=== PATIENT | female | born 1960 | race Caucasian/White ===

== ENCOUNTER → 2016-06-08 | Outpatient (CLI) | payer OTHER ==
[~2016-06-08] MED LIST: ADVAIR 250/501 EA INH; ALBUTEROL0.09 MG/A2 IH; AMOXIL125 MG/5 M PO; ANAPROX DS550 MG PO; ATIVAN1 MG PO; AUGMENTIN 875 M1 TAB PO; CHOLESTROL PO; CIPRODEX 0.3%-7.5 ML OT; CLARITIN10 MG PO; DAYPRO600 M1 PO; DIFLUCAN150 MG PO; ESTROGEN; ESTROGEN PO; FLONASE0.05 MG/AC NS; KEFLEX500 MG PO; LYRICA75 MG PO; MEDROL DOSEPAK4 MG PO; MOBIC15 MG PO; MOTRIN50 MG; PHENERGAN25 MG RC; PRILOSEC40 MG PO; ROBAXIN750 MG PO; TOBRADEX 0.1%-0.5 ML OPH; VALIUM PO; VALIUM10 MG PO; VALIUM2 MG PO; VIBRAMYCIN100 MG PO; VICO75300 PO; VICODIN; VICODIN 5/500 505 MG PO; VICODIN 500 MG-1 TAB PO; VITAMIN; XANAX PO; XANAX XR1 MG PO; XANAX0.5 MG PO; ZOFRAN4 MG PO
[2016-06-08 15:58] LABS: BILIRUBIN NEGATIVE (NEGATIVE); BLOOD TRACE-INTACT (NEGATIVE); CLARITY CLOUDY (CLEAR); COLOR YELLOW (YELLOW); GLUCOSE NEGATIVE (NEGATIVE); KETONE NEGATIVE (NEGATIVE); LEUKO ESTERASE 3+ (NEGATIVE); NITRITE NEGATIVE (NEGATIVE); PH 5.5 (5.0-9.0); PROTEIN NEGATIVE (NEGATIVE); SPECIFIC GRAVITY <= 1.005 (1.005-1.030); UROBILINOGEN 0.2 E.U./dl (0.2-1.0)
[2016-06-08 15:59] LABS: BASO % 0.4 % (0.0-1.0); EOS # 0.2 10*3/uL (0.0-0.4); EOS % 2.1 % (1.0-4.0); HEMATOCRIT 40.4 % (37.0-47.0); HEMOGLOBIN 13.5 g/dl (12.0-16.0); LYMPH # 3.4 10*3/uL (1.3-4.4); LYMPH % 47.1 % (27.0-41.0); MEAN CELL VOLUME 94.8 fl (81.0-99.0); MEAN CORPUSCULAR HGB 31.7 pg (27.0-31.0); MEAN CORPUSCULAR HGB CONC 33.4 g/dl (33.0-37.0); MONO # 0.8 10*3/uL (0.1-1.0); NEUT # 2.8 10*3/uL (2.3-7.9); NEUT % 39.3 % (47.0-73.0); PLATELET COUNT AUTOMATED 303 10*3/uL (130-400); RED BLOOD COUNT 4.26 10*6/uL (4.10-5.10); RED CELL DISTRI WIDTH 13.3 % (0-14.5); WHITE BLOOD COUNT 7.2 10*3/uL (4.8-10.8)
[2016-06-08 16:05] LABS: BACTERIA 2+; URINE REFLEX COMMENT YES (NO); WBC TNTC wbc/hpf (0-5)
[2016-06-08 16:26] LABS: ALBUMIN 3.8 gm/dl (3.1-4.5); ALKALINE PHOSPHATASE 80 U/L (45-117); BILIRUBIN, TOTAL 0.2 mg/dl (0.2-1.0); BUN 19 mg/dl (7-24); CARBON DIOXIDE 27 mmol/L (21-32); CHLORIDE 102 mmol/L (98-107); EST GLOM FILT AFRICAN AMERICAN > 60 ml/min; GLUCOSE 96 mg/dL (65-99); POTASSIUM 4.3 mmol/L (3.5-5.1); SGOT/AST 40 IU/L (3-35); SGPT/ALT 56 U/L (12-78); SODIUM 137 mmol/L (136-145); TOTAL PROTEIN 8.2 gm/dL (6.4-8.2)
[2016-06-08 16:27] LABS: C-REACTIVE PROTEIN < 0.29 MG/DL (0-0.3)
== END | disposition home or self-care (01) ==
LOC: LAB 15:33
PROVIDERS: Family Medicine
DX: J44.9 Chronic obstructive pulmonary disease, unspecified (principal); R50.9 Fever, unspecified; R11.2 Nausea with vomiting, unspecified

== ENCOUNTER → 2017-02-08 | Outpatient (CLI) | payer OTHER ==
[2017-02-08 16:13] LABS: CHOLESTEROL 183 mg/dL (<200); CPK 65 U/L (26-192); HDL CHOLESTEROL 38 mg/dl (40-60); LDL CHOLESTEROL 100 mg/dL (9-159); TRIGLYCERIDES 225 mg/dl (<150); VLDL CHOLESTEROL 45 mg/dL (6-40)
== END | disposition home or self-care (01) ==
LOC: LAB 15:02
PROVIDERS: Family Medicine
DX: E78.00 Pure hypercholesterolemia, unspecified (principal)

== ENCOUNTER → 2017-05-10 | Outpatient (CLI) | payer OTHER | END | disposition home or self-care (01) | LOC: MAMMO 15:17 | DX: Z12.31 Encounter for screening mammogram for malignant neoplasm of breast (principal) ==

== ENCOUNTER 2017-09-20 16:00 | Emergency (ER) | payer OTHER ==
[~2017-09-20] VITALS: Ht 152.4 cm; Wt 47.6 kg
[2017-09-20 16:03] VITALS: BP 118/76
[2017-09-20] MEDS ORDERED: CEPHALEXIN500 M1 PO (16:21)
[2017-09-20] MEDS ORDERED: ANTIBIOTIC28.4 GM T (16:24)
== END 2017-09-20 16:33 | disposition home or self-care (01) ==
LOC: ED 16:00
DX: S71.102A Unspecified open wound, left thigh, initial encounter (principal); Z79.899 Other long term (current) drug therapy; Z88.8 Allergy status to other drugs, medicaments and biological substances; X58.XXXA Exposure to other specified factors, initial encounter; Y93.89 Activity, other specified; Y92.89 Other specified places as the place of occurrence of the external cause; Y99.8 Other external cause status

== ENCOUNTER 2018-02-10 10:51 | Emergency (ER) | payer OTHER ==
[~2018-02-10] VITALS: Ht 152.4 cm; Wt 46.7 kg
--- NOTE | ~2018-02-10 | EKG ---
[place], [place] ELECTROCARDIOGRAM REPORT NAME: ERIS KO UNIT #: [id number] ROOM: DOCTOR: ELSA DRAFT REPORT BIRTHDATE: [birth year] [facility] Test Date: 2018-02-10 Test Time: 13:52:05 Pat Name: ERIS KO Department: Room: Gender: F Electric Drill Operator: : 1960 Requested By: CHAYA DORSEY Order Number: [id number] Reading MD: Measurements Intervals [place] Rate: 50 P: 63 WA: 138 QRS: 14 QRSD: 84 T: 35 QT: 439 QTc: 401 Interpretive Statements Sinus rhythm RSR' in V1 or V2, probably normal variant No previous ECG available for comparison CM:EKGRPT:ELECTROCARDIOGRAM REPORT [id number] CHAYA ROSS DRAFT REPORT CHAYA DORSEY DO
--- NOTE | ~2018-02-10 | EKG ---
[place], [place] ELECTROCARDIOGRAM REPORT NAME: ERIS KO UNIT #: [id number] ROOM: DOCTOR: ELSA DRAFT REPORT BIRTHDATE: [birth year] [facility] Test Date: 2018-02-10 Test Time: 10:53:57 Pat Name: ERIS KO Department: Room: Gender: F Barista: : 1960 Requested By: CHAYA DORSEY Order Number: [id number] Reading MD: Measurements Intervals [place] Rate: 96 P: 67 RI: 117 QRS: 10 QRSD: 81 T: 58 QT: 345 QTc: 436 Interpretive Statements Sinus rhythm Borderline short RI interval No previous ECG available for comparison CM:EKGRPT:ELECTROCARDIOGRAM REPORT [id number] CHAYA ROSS DRAFT REPORT CHAYA DORSEY DO
[~2018-02-10 10:51] MED LIST changes: +ANTIBIOTIC28.4 GM T; +CEPHALEXIN500 M1 PO
[2018-02-10 11:05] LABS: BASO % 0.5 % (0.0-1.0); EOS # 0.1 10*3/uL (0.0-0.4); EOS % 2.3 % (1.0-4.0); HEMATOCRIT 42.1 % (37.0-47.0); HEMOGLOBIN 14.3 g/dl (12.0-16.0); LYMPH # 3.3 10*3/uL (1.3-4.4); LYMPH % 53.1 % (27.0-41.0); MEAN CORPUSCULAR HGB 32.3 pg (27.0-31.0); MEAN PLATELET VOLUME 9.9 fl (9.6-12.3); MONO # 0.4 10*3/uL (0.1-1.0); MONO % 6.2 % (3.0-9.0); NEUT # 2.3 10*3/uL (2.3-7.9); NEUT % 37.7 % (47.0-73.0); PLATELET COUNT AUTOMATED 189 10*3/uL (130-400); RED BLOOD COUNT 4.43 10*6/uL (4.10-5.10); RED CELL DISTRI WIDTH 12.7 % (0-14.5); WHITE BLOOD COUNT 6.1 10*3/uL (4.8-10.8)
[2018-02-10 11:19] LABS: ACT PARTIAL THROMBO TIME 23.5 SECONDS (20.8-31.5)
[2018-02-10 11:22] LABS: ALBUMIN 3.9 gm/dl (3.1-4.5); ALKALINE PHOSPHATASE 60 U/L (45-117); BUN 23 mg/dl (7-24); CHLORIDE 102 mmol/L (98-107); CREATININE 1.09 mg/dL (0.55-1.02); POTASSIUM 4.3 mmol/L (3.5-5.1); SGOT/AST 16 IU/L (3-35); SGPT/ALT 17 U/L (12-78); SODIUM 136 mmol/L (136-145); TOTAL PROTEIN 7.7 gm/dL (6.4-8.2); TROPONIN I < 0.015 ng/ml (<0.045)
[2018-02-10 11:23] LABS: LIPASE 142 U/L (73-393)
[2018-02-10 13:58] LABS: BILIRUBIN NEGATIVE (NEGATIVE); BLOOD NEGATIVE (NEGATIVE); CLARITY CLEAR (CLEAR); COLOR YELLOW (YELLOW); GLUCOSE NEGATIVE (NEGATIVE); KETONE NEGATIVE (NEGATIVE); LEUKO ESTERASE NEGATIVE (NEGATIVE); NITRITE NEGATIVE (NEGATIVE); PH 6.5 (5.0-9.0); SPECIFIC GRAVITY <= 1.005 (1.005-1.030); UROBILINOGEN 0.2 E.U./dl (0.2-1.0)
[2018-02-10 14:20] LABS: RBC 0-2 rbc/hpf (0-2); WBC 0-2 wbc/hpf (0-5)
[2018-02-10 14:29] VITALS: BP 105/58
[2018-02-10] MEDS ORDERED: FLONASE ALLERG9.9 ML NAS (14:59)
[2018-02-10] MEDS ORDERED: LEVAQUIN750 M1 PO (14:59)
== END 2018-02-10 15:02 | disposition home or self-care (01) ==
LOC: ED 10:51
PROVIDERS: Emergency Medicine
DX: J32.9 Chronic sinusitis, unspecified (principal); R07.9 Chest pain, unspecified; J44.9 Chronic obstructive pulmonary disease, unspecified; R10.31 Right lower quadrant pain; R10.32 Left lower quadrant pain; F17.200 Nicotine dependence, unspecified, uncomplicated; Z88.8 Allergy status to other drugs, medicaments and biological substances; Z79.2 Long term (current) use of antibiotics; Z79.899 Other long term (current) drug therapy; Z90.710 Acquired absence of both cervix and uterus; Z90.49 Acquired absence of other specified parts of digestive tract

== ENCOUNTER 2018-04-08 19:28 | Emergency (ER) | payer OTHER ==
[~2018-04-08 19:28] MED LIST changes: +FLONASE ALLERG9.9 ML NAS; +LEVAQUIN750 M1 PO
[2018-04-08 19:31] VITALS: BP 127/68
== END 2018-04-08 21:29 | disposition home or self-care (01) ==
LOC: ED 19:28
DX: T59.91XA Toxic effect of unspecified gases, fumes and vapors, accidental (unintentional), initial encounter (principal); R05 Cough; R07.9 Chest pain, unspecified; R07.0 Pain in throat; Z88.8 Allergy status to other drugs, medicaments and biological substances; Z79.899 Other long term (current) drug therapy; Y92.89 Other specified places as the place of occurrence of the external cause

== ENCOUNTER 2018-07-26 12:45 | Emergency (ER) | payer OTHER ==
[~2018-07-26] VITALS: Ht 162.5 cm; Wt 48.1 kg
[2018-07-26 12:46] VITALS: BP 113/67
[2018-07-26] MEDS ORDERED: VIBRAMYCIN100 MG PO (14:57)
[2018-07-26] MEDS ORDERED: MEDROL DOSEPAK4 MG PO (14:57)
== END 2018-07-26 15:04 | disposition home or self-care (01) ==
LOC: ED 12:45
DX: J40 Bronchitis, not specified as acute or chronic (principal); M54.6 Pain in thoracic spine; Z88.8 Allergy status to other drugs, medicaments and biological substances; Z79.899 Other long term (current) drug therapy; Z79.2 Long term (current) use of antibiotics

== ENCOUNTER 2019-04-07 17:43 | Emergency (ER) | payer OTHER ==
[~2019-04-07] VITALS: Ht 154.9 cm; Wt 51.3 kg
[2019-04-07 17:52] VITALS: BP 110/82
[2019-04-07 18:32] LABS: BASO % 0.3 % (0.0-1.0); EOS # 0.1 10*3/uL (0.0-0.4); EOS % 1.5 % (1.0-4.0); HEMATOCRIT 44.1 % (37.0-47.0); HEMOGLOBIN 14.5 g/dl (12.0-16.0); LYMPH # 2.2 10*3/uL (1.3-4.4); MEAN CELL VOLUME 96.1 fl (81.0-99.0); MEAN CORPUSCULAR HGB 31.6 pg (27.0-31.0); MEAN CORPUSCULAR HGB CONC 32.9 g/dl (33.0-37.0); MEAN PLATELET VOLUME 9.9 fl (9.6-12.3); MONO # 0.4 10*3/uL (0.1-1.0); NEUT # 3.8 10*3/uL (2.3-7.9); PLATELET COUNT AUTOMATED 237 10*3/uL (130-400); RED BLOOD COUNT 4.59 10*6/uL (4.10-5.10); WHITE BLOOD COUNT 6.5 10*3/uL (4.8-10.8)
[2019-04-07 18:50] LABS: ALBUMIN 4.1 gm/dl (3.1-4.5); ALKALINE PHOSPHATASE 72 U/L (45-117); BUN 13 mg/dl (7-24); CHLORIDE 105 mmol/L (98-107); CREATININE 1.16 mg/dL (0.55-1.02); POTASSIUM 4.7 mmol/L (3.5-5.1); SGOT/AST 14 IU/L (3-35); SGPT/ALT 16 U/L (12-78); SODIUM 140 mmol/L (136-145); TOTAL PROTEIN 8.2 gm/dL (6.4-8.2)
[2019-04-07 18:53] LABS: TROPONIN I < 0.015 ng/ml (<0.045)
[2019-04-07] MEDS ORDERED: KEFLEX500 M1 PO (21:38)
[2019-04-07] MEDS ORDERED: PREDNISONE20 M1 PO (21:38)
== END 2019-04-07 21:02 | disposition home or self-care (01) ==
LOC: ED 17:43
PROVIDERS: Emergency Medicine
DX: J44.1 Chronic obstructive pulmonary disease with (acute) exacerbation (principal); F41.0 Panic disorder [episodic paroxysmal anxiety]; K21.9 Gastro-esophageal reflux disease without esophagitis; F32.9 Major depressive disorder, single episode, unspecified; E78.00 Pure hypercholesterolemia, unspecified; Z79.899 Other long term (current) drug therapy; Z87.891 Personal history of nicotine dependence; Z90.710 Acquired absence of both cervix and uterus

== ENCOUNTER 2019-04-17 05:44 | Emergency (ER) | payer OTHER ==
[~2019-04-17] VITALS: Ht 160 cm
[~2019-04-17 05:44] MED LIST changes: +KEFLEX500 M1 PO; +PREDNISONE20 M1 PO
[2019-04-17 05:59] VITALS: BP 121/77
[2019-04-17 06:45] LABS: BASO % 0.4 % (0.0-1.0); EOS # 0.2 10*3/uL (0.0-0.4); EOS % 3.1 % (1.0-4.0); HEMATOCRIT 45.7 % (37.0-47.0); HEMOGLOBIN 15.3 g/dl (12.0-16.0); LYMPH # 4.2 10*3/uL (1.3-4.4); LYMPH % 56.3 % (27.0-41.0); MEAN CELL VOLUME 94.2 fl (81.0-99.0); MEAN CORPUSCULAR HGB 31.5 pg (27.0-31.0); MEAN CORPUSCULAR HGB CONC 33.5 g/dl (33.0-37.0); MEAN PLATELET VOLUME 10.1 fl (9.6-12.3); MONO # 0.4 10*3/uL (0.1-1.0); MONO % 4.9 % (3.0-9.0); NEUT # 2.6 10*3/uL (2.3-7.9); PLATELET COUNT AUTOMATED 266 10*3/uL (130-400); RED BLOOD COUNT 4.85 10*6/uL (4.10-5.10); RED CELL DISTRI WIDTH 13.3 % (0-14.5); WHITE BLOOD COUNT 7.4 10*3/uL (4.8-10.8)
[2019-04-17 06:53] LABS: INTERNATIONAL NORM RATIO 0.9 (2.0-3.5)
[2019-04-17 07:06] LABS: ALBUMIN 3.8 gm/dl (3.1-4.5); ALKALINE PHOSPHATASE 73 U/L (45-117); BUN 9 mg/dl (7-24); CHLORIDE 107 mmol/L (98-107); CREATININE 0.88 mg/dL (0.55-1.02); POTASSIUM 3.3 mmol/L (3.5-5.1); SGOT/AST 30 IU/L (3-35); SGPT/ALT 32 U/L (12-78); SODIUM 141 mmol/L (136-145); TOTAL PROTEIN 7.7 gm/dL (6.4-8.2)
[2019-04-17 07:08] LABS: ACETAMINOPHEN (TYLENOL) < 5.0 ug/ml (10-30); TROPONIN I < 0.015 ng/ml (<0.045)
[2019-04-17 08:23] LABS: URINE AMPHETAMINES < 1000 (1000ng/ml); URINE BARBITURATES < 200 (200ng/ml); URINE BENZODIAZEPINES > 200 (200ng/ml); URINE CANNABINOIDS (THC) < 50 (50ng/ml); URINE COCAINE < 300 (300ng/ml); URINE METHADONE < 300 (300ng/ml); URINE OPIATES < 300 (300ng/ml)
[2019-04-17 08:24] LABS: CLARITY SL CLOUDY (CLEAR); COLOR YELLOW (YELLOW)
[2019-04-17 08:25] LABS: BILIRUBIN NEGATIVE (NEGATIVE); BLOOD NEGATIVE (NEGATIVE); EPITHELIAL CELLS 0-2; GLUCOSE NEGATIVE (NEGATIVE); KETONE NEGATIVE (NEGATIVE); LEUKO ESTERASE NEGATIVE (NEGATIVE); NITRITE NEGATIVE (NEGATIVE); UROBILINOGEN 0.2 E.U./dl (0.2-1.0); WBC 0-2 wbc/hpf (0-5)
[2019-04-17 08:28] LABS: URINE PHENCYCLIDINE < 25 (25ng/ml)
== END 2019-04-17 11:43 | disposition home or self-care (01) ==
LOC: ED 05:44
PROVIDERS: Emergency Medicine
DX: R53.83 Other fatigue (principal); T42.4X5A Adverse effect of benzodiazepines, initial encounter; J44.9 Chronic obstructive pulmonary disease, unspecified; F10.920 Alcohol use, unspecified with intoxication, uncomplicated; Z79.2 Long term (current) use of antibiotics; Z79.899 Other long term (current) drug therapy; Z90.49 Acquired absence of other specified parts of digestive tract; Z90.710 Acquired absence of both cervix and uterus; Y92.098 Other place in other non-institutional residence as the place of occurrence of the external cause

== ENCOUNTER 2019-08-30 21:16 | Emergency (ER) | payer OTHER ==
[2019-08-30 21:30] VITALS: BP 147/76
== END 2019-08-30 22:26 | disposition home or self-care (01) ==
LOC: ED 21:16
DX: H57.13 Ocular pain, bilateral (principal); K21.9 Gastro-esophageal reflux disease without esophagitis; J44.9 Chronic obstructive pulmonary disease, unspecified; M79.7 Fibromyalgia; E78.00 Pure hypercholesterolemia, unspecified; Z79.899 Other long term (current) drug therapy

== ENCOUNTER 2020-01-18 14:24 | Emergency (ER) | payer OTHER ==
[2020-01-18 14:30] VITALS: BP 112/88
== END 2020-01-18 16:27 | disposition left against medical advice (07) ==
LOC: ED 14:24
DX: S29.9XXA Unspecified injury of thorax, initial encounter (principal); Z53.21 Procedure and treatment not carried out due to patient leaving prior to being seen by health care provider; W19.XXXA Unspecified fall, initial encounter; Y93.89 Activity, other specified; Y92.89 Other specified places as the place of occurrence of the external cause; Y99.8 Other external cause status

== ENCOUNTER 2020-01-19 07:25 | Emergency (ER) | payer OTHER ==
[~2020-01-19] VITALS: Wt 49.9 kg
[2020-01-19 07:31] VITALS: BP 115/65
== END 2020-01-19 09:48 | disposition home or self-care (01) ==
LOC: ED 07:25
DX: R07.81 Pleurodynia (principal); J44.9 Chronic obstructive pulmonary disease, unspecified; Z79.899 Other long term (current) drug therapy

== ENCOUNTER 2020-04-06 12:57 | Emergency (ER) | payer OTHER ==
[~2020-04-06] VITALS: Wt 49.9 kg
[2020-04-06 13:09] VITALS: BP 129/72
[2020-04-06 13:45] LABS: BILIRUBIN 1+ (Negative); BLOOD Trace-Intact (Negative); CLARITY Turbid (Clear); COLOR Dark Yellow (Yellow); GLUCOSE Negative (Negative); KETONE Negative (Negative); LEUKO ESTERASE 3+ (Negative); NITRITE Positive (Negative)
[2020-04-06 13:51] LABS: BACTERIA 4+; EPITHELIAL CELLS 0-2; MUCOUS TRACE; RBC 0-2 rbc/hpf (0-2); WBC TNTC wbc/hpf (0-5)
== END 2020-04-06 14:09 | disposition home or self-care (01) ==
LOC: ED 12:57
PROVIDERS: Emergency Medicine
DX: N39.0 Urinary tract infection, site not specified (principal); Z79.899 Other long term (current) drug therapy; Z79.2 Long term (current) use of antibiotics; Z90.49 Acquired absence of other specified parts of digestive tract; Z98.51 Tubal ligation status; Z90.711 Acquired absence of uterus with remaining cervical stump; Z98.890 Other specified postprocedural states

== ENCOUNTER 2020-06-02 10:52 | Emergency (ER) | payer OTHER ==
[~2020-06-02] VITALS: Ht 152.4 cm; Wt 51.7 kg
[2020-06-02 11:00] VITALS: BP 134/95
[2020-06-02 11:57] LABS: BILIRUBIN Negative (Negative); BLOOD 1+ (Negative); CLARITY Clear (Clear); COLOR Yellow (Yellow); GLUCOSE Negative (Negative); KETONE Negative (Negative); LEUKO ESTERASE 3+ (Negative); NITRITE Negative (Negative); SPECIFIC GRAVITY <= 1.005 (1.001-1.030); UROBILINOGEN 0.2 E.U./dl (0.0-1.0)
[2020-06-02 12:13] LABS: WBC 16-20 wbc/hpf (0-5)
[2020-06-02 12:42] LABS: BASO % 0.2 % (0.0-1.0); EOS % 0.1 % (1.0-4.0); HEMATOCRIT 37.7 % (37.0-47.0); LYMPH # 1.8 10*3/uL (1.3-4.4); LYMPH % 13.4 % (27.0-41.0); MEAN CELL VOLUME 94.7 fl (81.0-99.0); MEAN CORPUSCULAR HGB 31.2 pg (27.0-31.0); MEAN CORPUSCULAR HGB CONC 32.9 g/dl (33.0-37.0); MEAN PLATELET VOLUME 10.1 fl (9.6-12.3); MONO # 0.3 10*3/uL (0.1-1.0); MONO % 2.3 % (3.0-9.0); NEUT # 11.1 10*3/uL (2.3-7.9); NEUT % 83.8 % (47.0-73.0); PLATELET COUNT AUTOMATED 224 10*3/uL (130-400); RED BLOOD COUNT 3.98 10*6/uL (4.10-5.10); RED CELL DISTRI WIDTH 13.9 % (0-14.5); WHITE BLOOD COUNT 13.2 10*3/uL (4.8-10.8)
[2020-06-02 12:55] LABS: ALBUMIN 3.4 gm/dl (3.1-4.5); ALKALINE PHOSPHATASE 64 U/L (45-117); BUN 6 mg/dl (7-24); CHLORIDE 109 mmol/L (98-107); CREATININE 0.84 mg/dL (0.55-1.02); POTASSIUM 3.5 mmol/L (3.5-5.1); SGOT/AST 10 IU/L (3-35); SGPT/ALT 17 U/L (12-78); SODIUM 142 mmol/L (136-145)
[2020-06-02] MEDS ORDERED: SEPTDS PO (16:22)
[2020-06-02] MEDS ORDERED: PYRIDIUM100 MG PO (16:22)
== END 2020-06-02 16:38 | disposition short-term general hospital (02) ==
LOC: ED 10:52
PROVIDERS: Nurse Practitioner
DX: N39.0 Urinary tract infection, site not specified (principal); Z90.710 Acquired absence of both cervix and uterus; Z79.899 Other long term (current) drug therapy; Z79.2 Long term (current) use of antibiotics; Z85.40 Personal history of malignant neoplasm of unspecified female genital organ; Z98.51 Tubal ligation status; Z90.49 Acquired absence of other specified parts of digestive tract

== ENCOUNTER 2020-06-16 14:58 | Emergency (ER) | payer OTHER ==
[~2020-06-16] VITALS: Ht 152.4 cm; Wt 47.2 kg
[~2020-06-16 14:58] MED LIST changes: +PYRIDIUM100 MG PO; +SEPTDS PO
[2020-06-16 15:04] VITALS: BP 168/72
[2020-06-16 15:47] LABS: BASO % 0.3 % (0.0-1.0); EOS # 0.2 10*3/uL (0.0-0.4); EOS % 2.2 % (1.0-4.0); HEMATOCRIT 40.8 % (37.0-47.0); LYMPH % 39.5 % (27.0-41.0); MEAN CELL VOLUME 96.7 fl (81.0-99.0); MEAN CORPUSCULAR HGB 30.6 pg (27.0-31.0); MEAN CORPUSCULAR HGB CONC 31.6 g/dl (33.0-37.0); MEAN PLATELET VOLUME 9.8 fl (9.6-12.3); MONO # 0.4 10*3/uL (0.1-1.0); MONO % 4.7 % (3.0-9.0); NEUT # 4.1 10*3/uL (2.3-7.9); NEUT % 53.2 % (47.0-73.0); PLATELET COUNT AUTOMATED 243 10*3/uL (130-400); RED BLOOD COUNT 4.22 10*6/uL (4.10-5.10); RED CELL DISTRI WIDTH 14.2 % (0-14.5); WHITE BLOOD COUNT 7.7 10*3/uL (4.8-10.8)
[2020-06-16 16:06] LABS: ALBUMIN 3.9 gm/dl (3.1-4.5); ALKALINE PHOSPHATASE 68 U/L (45-117); BUN 17 mg/dl (7-24); CHLORIDE 107 mmol/L (98-107); CREATININE 1.09 mg/dL (0.55-1.02); POTASSIUM 3.9 mmol/L (3.5-5.1); SGOT/AST 11 IU/L (3-35); SGPT/ALT 17 U/L (12-78); SODIUM 140 mmol/L (136-145); TOTAL PROTEIN 7.7 gm/dL (6.4-8.2)
[2020-06-16 16:35] LABS: BILIRUBIN 1+ (Negative); BLOOD Negative (Negative); CLARITY Clear (Clear); COLOR Orange (Yellow); GLUCOSE Negative (Negative); KETONE Negative (Negative); LEUKO ESTERASE 1+ (Negative); NITRITE Positive (Negative); SPECIFIC GRAVITY >= 1.030 (1.001-1.030)
[2020-06-16 16:43] LABS: BACTERIA 1+; MUCOUS 1+; RBC 0-2 rbc/hpf (0-2); WBC 21-30 wbc/hpf (0-5)
[2020-06-16] MEDS ORDERED: PYRIDIUM100 MG PO (17:30)
[2020-06-16] MEDS ORDERED: CIPRO500 MG PO (17:30)
[2020-06-16] MEDS ORDERED: PHENERGAN25 M3 PO (17:30)
== END 2020-06-16 17:33 | disposition home or self-care (01) ==
LOC: ED 14:58
PROVIDERS: Emergency Medicine
DX: N39.0 Urinary tract infection, site not specified (principal); Z79.899 Other long term (current) drug therapy; Z79.2 Long term (current) use of antibiotics; Z90.49 Acquired absence of other specified parts of digestive tract; Z98.51 Tubal ligation status; Z90.711 Acquired absence of uterus with remaining cervical stump; Z98.890 Other specified postprocedural states

== ENCOUNTER → 2020-06-25 | Outpatient (CLI) | payer OTHER ==
[~2020-06-25] MED LIST changes: +CIPRO500 MG PO; +PHENERGAN25 M3 PO
[2020-06-25 14:11] LABS: BILIRUBIN 1+ (Negative); BLOOD Negative (Negative); CLARITY Clear (Clear); COLOR Orange (Yellow); GLUCOSE Negative (Negative); KETONE Negative (Negative); LEUKO ESTERASE 1+ (Negative); NITRITE Positive (Negative); SPECIFIC GRAVITY >= 1.030 (1.001-1.030)
[2020-06-25 14:41] LABS: EPITHELIAL CELLS 0-2; WBC 0-2 wbc/hpf (0-5)
== END | disposition home or self-care (01) ==
LOC: CT 11:00 → LAB 11:06
PROVIDERS: ATTEND Urology
DX: D73.4 Cyst of spleen (principal); N28.1 Cyst of kidney, acquired; I25.10 Atherosclerotic heart disease of native coronary artery without angina pectoris; N39.0 Urinary tract infection, site not specified

== ENCOUNTER 2020-09-19 15:19 | Emergency (ER) | payer OTHER ==
[~2020-09-19] VITALS: Ht 152.4 cm; Wt 54.4 kg
[2020-09-19 15:25] VITALS: BP 115/68
[2020-09-19 15:57] LABS: BASO % 0.2 % (0.0-1.0); EOS # 0.1 10*3/uL (0.0-0.4); EOS % 0.8 % (1.0-4.0); HEMATOCRIT 40.9 % (37.0-47.0); LYMPH # 2.6 10*3/uL (1.3-4.4); LYMPH % 40.8 % (27.0-41.0); MEAN CORPUSCULAR HGB CONC 32.3 g/dl (33.0-37.0); MEAN PLATELET VOLUME 11.1 fl (9.6-12.3); MONO # 0.3 10*3/uL (0.1-1.0); MONO % 5.2 % (3.0-9.0); NEUT # 3.4 10*3/uL (2.3-7.9); NEUT % 52.8 % (47.0-73.0); PLATELET COUNT AUTOMATED 191 10*3/uL (130-400); RED BLOOD COUNT 4.26 10*6/uL (4.10-5.10); RED CELL DISTRI WIDTH 13.1 % (0-14.5); WHITE BLOOD COUNT 6.4 10*3/uL (4.8-10.8)
[2020-09-19 16:14] LABS: ALBUMIN 3.9 gm/dl (3.1-4.5); ALKALINE PHOSPHATASE 65 U/L (45-117); BUN 12 mg/dl (7-24); CHLORIDE 109 mmol/L (98-107); CREATININE 0.85 mg/dL (0.55-1.02); SGOT/AST 19 IU/L (3-35); SGPT/ALT 18 U/L (12-78); SODIUM 140 mmol/L (136-145); TOTAL PROTEIN 7.6 gm/dL (6.4-8.2)
[2020-09-19 16:16] LABS: TROPONIN I < 0.015 ng/ml (<0.045)
== END 2020-09-19 18:05 | disposition left against medical advice (07) ==
LOC: ED 15:19
PROVIDERS: Internal Medicine
DX: R07.89 Other chest pain (principal); R20.0 Anesthesia of skin; R42 Dizziness and giddiness; Z79.899 Other long term (current) drug therapy; Z79.2 Long term (current) use of antibiotics; Z90.49 Acquired absence of other specified parts of digestive tract; Z98.51 Tubal ligation status; Z90.711 Acquired absence of uterus with remaining cervical stump; Z98.890 Other specified postprocedural states; Z53.29 Procedure and treatment not carried out because of patient's decision for other reasons

== ENCOUNTER → 2020-10-31 | Outpatient (CLI) | payer OTHER ==
[2020-10-31 14:28] LABS: BILIRUBIN Negative (Negative); BLOOD Negative (Negative); CLARITY Clear (Clear); COLOR Orange (Yellow); GLUCOSE Negative (Negative); KETONE Negative (Negative); LEUKO ESTERASE 2+ (Negative); NITRITE Positive (Negative); PH 5.5 (4.5-8.0)
[2020-10-31 15:48] LABS: BACTERIA 1+; RBC 0-2 rbc/hpf (0-2)
== END | disposition home or self-care (01) ==
LOC: LAB 13:10
PROVIDERS: ATTEND Urology
DX: N39.0 Urinary tract infection, site not specified (principal)

== ENCOUNTER → 2021-07-29 | Outpatient (CLI) | payer OTHER | END | disposition home or self-care (01) | LOC: CT 14:45 | PROVIDERS: ATTEND Family Medicine | DX: S09.90XA Unspecified injury of head, initial encounter (principal); X58.XXXA Exposure to other specified factors, initial encounter; Y93.89 Activity, other specified; Y92.89 Other specified places as the place of occurrence of the external cause; Y99.8 Other external cause status ==

== ENCOUNTER 2021-08-20 16:24 | Emergency (ER) | payer OTHER ==
[~2021-08-20] VITALS: Wt 46.7 kg
[2021-08-20 16:32] VITALS: BP 118/70
[2021-08-20 17:11] LABS: BASO % 0.1 % (0.0-1.0); EOS % 0.4 % (1.0-4.0); HEMATOCRIT 39.4 % (37.0-47.0); LYMPH # 1.6 10*3/uL (1.3-4.4); MEAN CELL VOLUME 92.1 fl (81.0-99.0); MEAN CORPUSCULAR HGB 30.1 pg (27.0-31.0); MEAN CORPUSCULAR HGB CONC 32.7 g/dl (33.0-37.0); MEAN PLATELET VOLUME 9.9 fl (9.6-12.3); MONO # 0.4 10*3/uL (0.1-1.0); MONO % 4.5 % (3.0-9.0); NEUT # 6.9 10*3/uL (2.3-7.9); NEUT % 76.7 % (47.0-73.0); PLATELET COUNT AUTOMATED 235 10*3/uL (130-400); RED BLOOD COUNT 4.28 10*6/uL (4.10-5.10); RED CELL DISTRI WIDTH 13.9 % (0-14.5)
[2021-08-20 17:18] LABS: ACT PARTIAL THROMBO TIME 27.1 SECONDS (20.0-32.1)
[2021-08-20 17:26] LABS: ALKALINE PHOSPHATASE 67 U/L (45-117); BUN 19 mg/dl (7-24); CHLORIDE 109 mmol/L (98-107); CREATININE 0.92 mg/dL (0.55-1.02); LIPASE 77 U/L (73-393); POTASSIUM 4.1 mmol/L (3.5-5.1); SGOT/AST 13 IU/L (3-35); SGPT/ALT 12 U/L (12-78); SODIUM 141 mmol/L (136-145); TOTAL PROTEIN 7.3 gm/dL (6.4-8.2)
== END 2021-08-20 19:55 | disposition left against medical advice (07) ==
LOC: ED 16:24
PROVIDERS: Emergency Medicine
DX: R07.9 Chest pain, unspecified (principal); R68.84 Jaw pain; Z79.899 Other long term (current) drug therapy; Z90.49 Acquired absence of other specified parts of digestive tract; Z90.710 Acquired absence of both cervix and uterus; Z98.51 Tubal ligation status

== ENCOUNTER → 2021-10-08 | Day surgery (SDC) | payer OTHER ==
[~2021-10-08] VITALS: Ht 152.4 cm; Wt 46.7 kg
[~2021-10-08] MED LIST changes: +METAMUCIL660 GM PO; +XANAX2 M1 PO
[2021-10-08 07:10] VITALS: BP 110/71
[2021-10-08 08:26] VITALS: BP 157/94
[2021-10-08 08:39] VITALS: BP 133/78
[2021-10-08 08:47] VITALS: BP 142/76
== END | disposition home or self-care (01) ==
LOC: SDC 10-05 09:30
PROVIDERS: ATTEND Surgery
DX: R19.7 Diarrhea, unspecified (principal); D12.5 Benign neoplasm of sigmoid colon; K29.50 Unspecified chronic gastritis without bleeding; J44.9 Chronic obstructive pulmonary disease, unspecified; K21.9 Gastro-esophageal reflux disease without esophagitis; F41.9 Anxiety disorder, unspecified; F32.9 Major depressive disorder, single episode, unspecified; M79.7 Fibromyalgia; Z88.0 Allergy status to penicillin; Z91.040 Latex allergy status; Z79.899 Other long term (current) drug therapy

== ENCOUNTER → 2021-10-31 | Outpatient (CLI) | payer OTHER ==
[2021-10-31 10:36] LABS: BUN 12 mg/dl (7-24); CREATININE 0.97 mg/dL (0.55-1.02)
== END | disposition home or self-care (01) ==
LOC: CT → LAB → CT 10:00
PROVIDERS: ATTEND Urology
DX: R31.29 Other microscopic hematuria (principal); D73.4 Cyst of spleen; Z90.710 Acquired absence of both cervix and uterus

== ENCOUNTER → 2021-11-23 | Outpatient (CLI) | payer OTHER | END | disposition home or self-care (01) | LOC: CARD 11:30 | PROVIDERS: ATTEND Internal Medicine Cardiovascular Disease | DX: I34.8 Other nonrheumatic mitral valve disorders (principal) ==

== ENCOUNTER → 2022-03-24 | Outpatient (CLI) | payer OTHER | END | disposition home or self-care (01) | LOC: RAD 12:20 | PROVIDERS: ATTEND Family Medicine | DX: M25.522 Pain in left elbow (principal); R20.0 Anesthesia of skin ==

== ENCOUNTER 2022-04-23 13:43 | Emergency (ER) | payer OTHER ==
[~2022-04-23] VITALS: Ht 152.4 cm
[2022-04-23 14:16] VITALS: BP 113/73
[2022-04-23 14:48] LABS: BASO % 0.1 % (0.0-1.0); EOS # 0.1 10*3/uL (0.0-0.4); EOS % 1.3 % (1.0-4.0); HEMATOCRIT 41.8 % (37.0-47.0); LYMPH # 1.7 10*3/uL (1.3-4.4); LYMPH % 24.5 % (27.0-41.0); MEAN CELL VOLUME 93.7 fl (81.0-99.0); MEAN CORPUSCULAR HGB 30.9 pg (27.0-31.0); MEAN PLATELET VOLUME 10.4 fl (9.6-12.3); MONO # 0.4 10*3/uL (0.1-1.0); MONO % 5.1 % (3.0-9.0); NEUT # 4.9 10*3/uL (2.3-7.9); NEUT % 68.9 % (47.0-73.0); PLATELET COUNT AUTOMATED 206 10*3/uL (130-400); RED BLOOD COUNT 4.46 10*6/uL (4.10-5.10); RED CELL DISTRI WIDTH 14.1 % (0-14.5); WHITE BLOOD COUNT 7.1 10*3/uL (4.8-10.8)
[2022-04-23 15:00] LABS: ACT PARTIAL THROMBO TIME 27.1 SECONDS (20.0-32.1); INTERNATIONAL NORM RATIO 0.9 (2.0-3.5)
[2022-04-23 15:08] LABS: ALKALINE PHOSPHATASE 64 U/L (46-116); BUN 16 mg/dl (9-23); CHLORIDE 103 mmol/L (98-107); LIPASE 32 U/L (12-53); POTASSIUM 3.8 mmol/L (3.4-5.1); SGPT/ALT 14 U/L (10-49); TOTAL PROTEIN 7.2 gm/dL (6.0-8.0)
== END 2022-04-23 17:36 | disposition left against medical advice (07) ==
LOC: ED 13:43
PROVIDERS: Emergency Medicine
DX: R06.00 Dyspnea, unspecified (principal); R42 Dizziness and giddiness; K21.9 Gastro-esophageal reflux disease without esophagitis; J44.9 Chronic obstructive pulmonary disease, unspecified; F41.9 Anxiety disorder, unspecified; M79.7 Fibromyalgia; E87.8 Other disorders of electrolyte and fluid balance, not elsewhere classified; Z91.040 Latex allergy status; Z88.0 Allergy status to penicillin; Z90.710 Acquired absence of both cervix and uterus; Z98.51 Tubal ligation status; F32.A Depression, unspecified

== ENCOUNTER 2022-08-11 15:14 | Emergency (ER) | payer OTHER ==
[~2022-08-11] VITALS: Wt 47.6 kg
[2022-08-11 15:32] VITALS: BP 121/78
[2022-08-12] MEDS ORDERED: CIPRO500 MG PO (18:47)
== END 2022-08-11 16:39 | disposition left against medical advice (07) ==
LOC: ED 15:14
DX: M79.641 Pain in right hand (principal); Z53.21 Procedure and treatment not carried out due to patient leaving prior to being seen by health care provider; T63.001A Toxic effect of unspecified snake venom, accidental (unintentional), initial encounter; Y92.89 Other specified places as the place of occurrence of the external cause

== ENCOUNTER 2022-08-12 15:20 | Emergency (ER) | payer OTHER ==
[~2022-08-12] VITALS: Ht 152.4 cm; Wt 47.6 kg
[2022-08-12 15:24] VITALS: BP 129/85
[2022-08-12 17:11] LABS: MEAN CORPUSCULAR HGB 30.5 pg (27.0-31.0); MEAN CORPUSCULAR HGB CONC 33.2 g/dl (33.0-37.0); PLATELET COUNT AUTOMATED 233 10*3/uL (130-400); RED BLOOD COUNT 4.13 10*6/uL (4.10-5.10); WHITE BLOOD COUNT 9.3 10*3/uL (4.8-10.8)
[2022-08-12 17:13] LABS: MANUAL DIFF REFLEX YES
[2022-08-12 17:31] LABS: ATYPICAL LYMPHS 1 % (0-0); OVALOCYTES FEW; PLATELET SUFFICIENCY NORMAL (NORMAL); TOTAL CELLS COUNTED 100 #CELLS
[2022-08-12 17:38] LABS: ALKALINE PHOSPHATASE 61 U/L (46-116); BUN 10 mg/dl (9-23); CHLORIDE 106 mmol/L (98-107); POTASSIUM 4.3 mmol/L (3.4-5.1); TOTAL PROTEIN 7.5 gm/dL (6.0-8.0)
[2022-08-12 17:46] LABS: SGPT/ALT < 7 U/L (10-49)
[2022-08-12] MEDS ORDERED: CIPRO500 MG PO (18:47)
== END 2022-08-12 19:20 | disposition home or self-care (01) ==
LOC: ED 15:20
PROVIDERS: Nurse Practitioner Family
DX: S61.431A Puncture wound without foreign body of right hand, initial encounter (principal); K21.9 Gastro-esophageal reflux disease without esophagitis; J44.9 Chronic obstructive pulmonary disease, unspecified; D64.9 Anemia, unspecified; F41.9 Anxiety disorder, unspecified; F32.A Depression, unspecified; M79.7 Fibromyalgia; E78.00 Pure hypercholesterolemia, unspecified; Z91.040 Latex allergy status; Z88.0 Allergy status to penicillin; Z90.710 Acquired absence of both cervix and uterus; Z90.49 Acquired absence of other specified parts of digestive tract; Z98.51 Tubal ligation status; Z98.890 Other specified postprocedural states; W59.11XA Bitten by nonvenomous snake, initial encounter; Y93.89 Activity, other specified; Y92.89 Other specified places as the place of occurrence of the external cause; Y99.8 Other external cause status

== ENCOUNTER → 2023-09-12 | Outpatient (CLI) | payer OTHER ==
[2023-09-12 11:28] LABS: BASO % 0.4 % (0.0-1.0); EOS # 0.1 10*3/uL (0.0-0.4); EOS % 1.6 % (1.0-4.0); HEMATOCRIT 40.3 % (37.0-47.0); LYMPH # 3.2 10*3/uL (1.3-4.4); LYMPH % 39.2 % (27.0-41.0); MEAN CELL VOLUME 97.8 fl (81.0-99.0); MEAN CORPUSCULAR HGB 30.6 pg (27.0-31.0); MEAN CORPUSCULAR HGB CONC 31.3 g/dl (33.0-37.0); MEAN PLATELET VOLUME 9.9 fl (9.6-12.3); MONO # 0.4 10*3/uL (0.1-1.0); MONO % 4.5 % (3.0-9.0); NEUT # 4.5 10*3/uL (2.3-7.9); NEUT % 54.1 % (47.0-73.0); PLATELET COUNT AUTOMATED 259 10*3/uL (130-400); RED BLOOD COUNT 4.12 10*6/uL (4.10-5.10); RED CELL DISTRI WIDTH 13.3 % (0-14.5); WHITE BLOOD COUNT 8.2 10*3/uL (4.8-10.8)
[2023-09-12 12:17] LABS: ALKALINE PHOSPHATASE 54 U/L (46-116); BUN 12 mg/dl (9-23); CHLORIDE 104 mmol/L (98-107); CHOLESTEROL 278 mg/dL (<200); LDL CHOLESTEROL 189 mg/dL (9-159); POTASSIUM 3.6 mmol/L (3.4-5.1); SGPT/ALT < 7 U/L (5-49); TOTAL PROTEIN 7.2 gm/dL (6.0-8.0); TRIGLYCERIDES 241 mg/dl (<150)
== END | disposition home or self-care (01) ==
LOC: LAB 11:07
PROVIDERS: ATTEND Nurse Practitioner Family
DX: J45.909 Unspecified asthma, uncomplicated (principal); Z87.891 Personal history of nicotine dependence; Z79.899 Other long term (current) drug therapy

== ENCOUNTER 2023-09-26 13:45 | Emergency (ER) | payer OTHER ==
[~2023-09-26] VITALS: Ht 152.4 cm; Wt 49.9 kg
[2023-09-26 13:59] VITALS: BP 118/75
[2023-09-26] MEDS ORDERED: OFLOXACIN 10 ML10 M2 OT (14:37)
[2023-09-26] MEDS ORDERED: CLINDAMYCIN HC300 MG PO (14:37)
[2023-09-26] MEDS ORDERED: OFLOXACIN 0.3% 5 ML BOTTLE OT ONE (14:40)
[2023-09-26] MEDS ORDERED: CLINDAMYCIN HCL 300 MG CAPSULE PO ONE (14:40)
== END 2023-09-26 14:52 | disposition home or self-care (01) ==
LOC: ED 13:45
DX: H72.92 Unspecified perforation of tympanic membrane, left ear (principal); H66.93 Otitis media, unspecified, bilateral; J44.9 Chronic obstructive pulmonary disease, unspecified; K21.9 Gastro-esophageal reflux disease without esophagitis; D64.9 Anemia, unspecified; F41.9 Anxiety disorder, unspecified; F32.A Depression, unspecified; M79.7 Fibromyalgia; E78.00 Pure hypercholesterolemia, unspecified; Z91.040 Latex allergy status; Z88.0 Allergy status to penicillin; Z90.49 Acquired absence of other specified parts of digestive tract; Z98.51 Tubal ligation status; Z90.710 Acquired absence of both cervix and uterus; Z98.890 Other specified postprocedural states

== ENCOUNTER 2023-10-14 14:29 | Emergency (ER) | payer OTHER ==
[~2023-10-14] VITALS: Ht 152.4 cm; Wt 45.8 kg
[~2023-10-14 14:29] MED LIST changes: +CLINDAMYCIN HC300 MG PO; +OFLOXACIN 10 ML10 M2 OT
[2023-10-14 14:56] VITALS: BP 155/88
[2023-10-14] MEDS ORDERED: TERCONAZOLE20 GM V (14:58)
[2023-10-14] MEDS ORDERED: Synthroid,Levo25 MCG PO (14:58)
[2023-10-14] MEDS ORDERED: ESTRADIOL1 MG PO (14:58)
[2023-10-14] MEDS ORDERED: KENALOG 0.1% OI15 GM T (14:58)
[2023-10-14] MEDS ORDERED: Valacyclovir Hydrochloride 500 MG CAP PO ONE (17:10)
[2023-10-14] MEDS ORDERED: VALTREX1000 MG PO (17:14)
== END 2023-10-14 17:28 | disposition home or self-care (01) ==
LOC: ED 14:29
DX: B02.9 Zoster without complications (principal); K21.9 Gastro-esophageal reflux disease without esophagitis; J44.9 Chronic obstructive pulmonary disease, unspecified; D64.9 Anemia, unspecified; F41.9 Anxiety disorder, unspecified; F32.A Depression, unspecified; M79.7 Fibromyalgia; E78.00 Pure hypercholesterolemia, unspecified; Z90.49 Acquired absence of other specified parts of digestive tract; Z98.51 Tubal ligation status; Z90.710 Acquired absence of both cervix and uterus; Z98.890 Other specified postprocedural states

== ENCOUNTER → 2023-12-26 | Outpatient (CLI) | payer OTHER ==
[~2023-12-26] MED LIST changes: +ESTRADIOL1 MG PO; +KENALOG 0.1% OI15 GM T; +Synthroid,Levo25 MCG PO; +TERCONAZOLE20 GM V; +VALTREX1000 MG PO
== END | disposition home or self-care (01) ==
LOC: LAB 16:05
PROVIDERS: ATTEND Nurse Practitioner Family
DX: E03.9 Hypothyroidism, unspecified (principal)

== ENCOUNTER 2024-05-05 01:52 | Emergency (ER) | payer OTHER ==
[~2024-05-05] VITALS: Ht 152.4 cm; Wt 51.3 kg
[2024-05-05 02:00] VITALS: BP 129/79
[2024-05-05 03:12] LABS: BILIRUBIN Negative (Negative); BLOOD Negative (Negative); CLARITY Clear (Clear); COLOR Dark Yellow (Yellow); GLUCOSE Negative (Negative); KETONE Trace (Negative); LEUKO ESTERASE Trace (Negative); NITRITE Positive (Negative); SPECIFIC GRAVITY 1.015 (1.001-1.030)
[2024-05-05 03:45] LABS: BACTERIA 1+; EPITHELIAL CELLS 16-20
[2024-05-05] MEDS ORDERED: AMOX-CLAV 875-1 EACH PO (04:13)
== END 2024-05-05 04:23 | disposition home or self-care (01) ==
LOC: ED 01:52
PROVIDERS: Internal Medicine
DX: N39.0 Urinary tract infection, site not specified (principal); K21.9 Gastro-esophageal reflux disease without esophagitis; J44.9 Chronic obstructive pulmonary disease, unspecified; D64.9 Anemia, unspecified; F41.9 Anxiety disorder, unspecified; F32.A Depression, unspecified; M79.7 Fibromyalgia; E78.00 Pure hypercholesterolemia, unspecified; Z88.1 Allergy status to other antibiotic agents; Z88.2 Allergy status to sulfonamides; Z88.8 Allergy status to other drugs, medicaments and biological substances; Z90.710 Acquired absence of both cervix and uterus; Z98.890 Other specified postprocedural states; Z90.49 Acquired absence of other specified parts of digestive tract

== ENCOUNTER → 2024-07-27 | Outpatient (CLI) | payer OTHER ==
[~2024-07-27] MED LIST changes: +AMOX-CLAV 875-1 EACH PO
== END | disposition home or self-care (01) ==
LOC: RAD 16:15
PROVIDERS: ATTEND Nurse Practitioner Primary Care
DX: R07.81 Pleurodynia (principal); M79.641 Pain in right hand

== ENCOUNTER → 2024-09-05 | Outpatient (CLI) | payer OTHER ==
[2024-09-05 15:51] LABS: LDL CHOLESTEROL 161.0 mg/dL (9-159)
[2024-09-05 16:02] LABS: VITAMIN D, 25-HYDROXY 35.3 ng/mL (30-100)
== END | disposition home or self-care (01) ==
LOC: US 07-25 13:30 → LAB 14:27 → US 14:30
PROVIDERS: ATTEND Nurse Practitioner Primary Care
DX: E04.1 Nontoxic single thyroid nodule (principal); E55.9 Vitamin D deficiency, unspecified; E53.8 Deficiency of other specified B group vitamins; R94.6 Abnormal results of thyroid function studies

== ENCOUNTER → 2024-12-11 | Outpatient (CLI) | payer OTHER ==
[~2024-12-11] MED LIST changes: +IOHEXOL 350 MG/ML 100 ML VIAL IV ONE
[2024-12-11 14:05] LABS: BILIRUBIN Negative (Negative); BLOOD Negative (Negative); CLARITY Clear (Clear); COLOR Yellow (Yellow); KETONE Negative (Negative); LEUKO ESTERASE Negative (Negative); NITRITE Negative (Negative); PH 6.5 (4.5-8.0); SPECIFIC GRAVITY >= 1.030 (1.001-1.030); UROBILINOGEN 0.2 E.U./dl (0.0-1.0)
== END | disposition home or self-care (01) ==
LOC: LAB 12:46 → CT 13:00
PROVIDERS: ATTEND Urology
DX: N28.1 Cyst of kidney, acquired (principal); K76.89 Other specified diseases of liver; R39.15 Urgency of urination

== ENCOUNTER → 2024-12-23 | Outpatient (CLI) | payer OTHER ==
[~2024-12-23] MED LIST changes: -IOHEXOL 350 MG/ML 100 ML VIAL IV ONE
== END | disposition home or self-care (01) ==
LOC: LAB 12:00
PROVIDERS: ATTEND Nurse Practitioner Primary Care
DX: R19.7 Diarrhea, unspecified (principal)

== ENCOUNTER → 2025-02-07 | Outpatient (CLI) | payer OTHER | END | disposition home or self-care (01) | LOC: LAB 11:44 | PROVIDERS: ATTEND Urology | DX: R31.0 Gross hematuria (principal) ==